=== PATIENT | male | born 1950 | race African-American/Black ===

== ENCOUNTER 2024-04-13 10:17 | Day surgery (SDC) | payer SELFPAY ==
[2024-04-13] MEDS ORDERED: diphenhydrAMINE 25 MG CAP PO SCH (11:15)
[2024-04-13] MEDS ORDERED: Acetaminophen 500 MG TAB ONE (12:21)
[2024-04-13] MEDS: Acetaminophen 500 MG TAB PO SCH (12:22)
[2024-04-13 16:55] VITALS: BP 129/75; TEMP 98
== END 2024-04-13 17:00 | disposition home or self-care (01) ==
LOC: ONC/OP 10:17
PROVIDERS: ATTEND Internal Medicine Hematology & Oncology
DX: D64.9 Anemia, unspecified (principal); D69.6 Thrombocytopenia, unspecified
CPT/HCPCS: 36430; 86850; 86870; 86900; 86901; 86905; 86922; P9016

== ENCOUNTER 2024-04-25 09:06 | Day surgery (SDC) | payer MEDICARE ==
[2024-04-25] MEDS ORDERED: diphenhydrAMINE 25 MG CAP ONE (09:40)
[2024-04-25] MEDS ORDERED: Acetaminophen 500 MG TAB ONE (09:40)
[2024-04-25] MEDS: Acetaminophen 500 MG TAB PO SCH (09:41)
[2024-04-25] MEDS: diphenhydrAMINE 25 MG CAP PO SCH (09:42)
[2024-04-25 13:20] VITALS: BP 111/69; TEMP 98
== END 2024-04-25 13:21 | disposition home or self-care (01) ==
LOC: ONC/OP 09:06
PROVIDERS: ATTEND Internal Medicine Hematology & Oncology
DX: D64.9 Anemia, unspecified (principal); D69.6 Thrombocytopenia, unspecified
CPT/HCPCS: 36430; 86850; 86870; 86900; 86901; 86902; 86920; 86922; P9016

== ENCOUNTER 2024-05-19 10:09 | Day surgery (SDC) | payer MEDICARE, SELFPAY ==
[2024-05-19] MEDS ORDERED: diphenhydrAMINE 25 MG CAP PO SCH (10:45)
[2024-05-19] MEDS ORDERED: Acetaminophen 500 MG TAB ONE (11:25)
[2024-05-19] MEDS: Acetaminophen 500 MG TAB PO SCH (11:26)
[2024-05-19 14:40] VITALS: BP 130/68; TEMP 98.2
== END 2024-05-19 14:43 | disposition home or self-care (01) ==
LOC: ONC/OP 10:09
PROVIDERS: ATTEND Internal Medicine Hematology & Oncology
DX: D64.9 Anemia, unspecified (principal); D69.6 Thrombocytopenia, unspecified
CPT/HCPCS: 36430; 86850; 86900; 86901; 86922; P9016

== ENCOUNTER 2024-05-26 11:58 | Day surgery (SDC) | payer MEDICARE, SELFPAY ==
[2024-05-26] MEDS ORDERED: Acetaminophen 500 MG TAB ONE (13:10)
[2024-05-26] MEDS: Acetaminophen 500 MG TAB PO SCH (13:11)
[2024-05-26] MEDS ORDERED: diphenhydrAMINE 25 MG CAP PO SCH (13:15)
[2024-05-26 14:35] VITALS: TEMP 97.8
[2024-05-26 17:03] VITALS: BP 98/63
== END 2024-05-26 17:04 | disposition home or self-care (01) ==
LOC: ONC/OP 11:58
PROVIDERS: ATTEND Internal Medicine Hematology & Oncology
DX: D64.9 Anemia, unspecified (principal); D69.6 Thrombocytopenia, unspecified
CPT/HCPCS: 36430; 86850; 86870; 86900; 86901; 86922; P9016

== ENCOUNTER 2024-08-17 11:45 | Day surgery (SDC) | payer MEDICARE, SELFPAY ==
[2024-08-17] MEDS ORDERED: diphenhydrAMINE 25 MG CAP PO SCH (12:00)
[2024-08-17] MEDS ORDERED: Acetaminophen 500 MG TAB ONE (12:43)
[2024-08-17] MEDS: Acetaminophen 500 MG TAB PO SCH (12:44)
[2024-08-17] MEDS ORDERED: FLU (Fluad Triv) TS24-25 (65UP)/MF59C/PF 45 MCG/0.5 ML Syringe IM ONE (15:00)
[2024-08-17 17:41] VITALS: BP 120/73; TEMP 98.4
== END 2024-08-17 17:48 | disposition home or self-care (01) ==
LOC: ONC/OP 11:45
PROVIDERS: ATTEND Internal Medicine Hematology & Oncology
DX: D64.9 Anemia, unspecified (principal); D69.6 Thrombocytopenia, unspecified
CPT/HCPCS: 36430; 86850; 86870; 86900; 86901; 86922; P9016

== ENCOUNTER 2024-08-28 12:28 | Inpatient (IN) | payer MEDICARE, SELFPAY ==
[~2024-08-28 12:28] MED LIST: Iopamidol-370 76% 500 ML MDV (1 ML CHARGE) ONE
[2024-08-28 13:10] LABS: Actual Bicarbonate (HCO3v) 18.4 mEq/L (22-28); Analyzer IN Cardio ER; Base Excess -7.6 mEq/L (-2.0 to +3.0); Calcium, Ionized (venous) 1.07 mmol/L (1.16-1.32); Chloride (VBG) 108 mmol/L (98-106); Hematocrit-VBG 9 % (42.0-52.0); Potassium (VBG) 3.52 mmol/L (3.70-5.30); Sodium 139 mmol/L (133-146); pH (venous) 7.271 (7.32-7.43)
[2024-08-28 13:18] LABS: Hematocrit 9.7 % (42.0-52.0); Hemoglobin 2.8 g/dL (14.0-18.0); Mean Corpuscular HGB CONC 28.9 g/dL (32.0-36.0); Mean Corpuscular Hemoglobin 31.5 pg (27.0-31.0); Platelet Count 12 10x3/uL (130-400); RBC Distribution Width 28.8 % (11.5-14.5); Red Blood Cell (RBC) Count 0.89 mill/uL (4.70-6.10)
[2024-08-28 13:21] LABS: INR-International Normal Ratio 1.5; PTT 29.3 sec (22.9-36.1); Prothrombin Time 18.2 sec (12.0-14.7)
[2024-08-28 13:24] LABS: Acetaminophen Less than 10 mcg/mL (Less than 10); Alcohol Less than 10.0 mg/dL (Less than 10); Magnesium 1.8 mg/dL (1.6-2.6); Salicylate Less than 8.0 mg/dL (Less than 8.0)
[2024-08-28 13:25] LABS: ALT (SGPT) 5 U/L (8-55); AST (SGOT) 19 U/L (5-34); Albumin 2.3 g/dL (3.4-4.8); Alkaline Phosphatase 43 U/L (40-110); Anion Gap 20 mmol/L (10-20); BUN (Urea Nitrogen) 27 mg/dL (8.4-25.7); Calc. Creatinine Clearance 0 mL/min (70-130); Calcium 7.5 mg/dL (7.8-10.44); Carbon Dioxide 16 mmol/L (23-31); Chloride 106 mmol/L (98-107); Estimated GFR 63; Glucose 255 mg/dL (83-110); Potassium 3.4 mmol/L (3.5-5.1); Protein, Total 4.3 g/dL (5.8-8.1); Sodium 139 mmol/L (136-145)
[2024-08-28 13:47] LABS: Troponin I 0.079 ng/mL (< 0.028)
[2024-08-28 13:53] LABS: Anisocytosis MODERATE=16-30 cells HPF (0-5); Band 4 % (5-11); Eosinophils 1 % (0-10); Hypochromia SLIGHT = 6-15 cells HPF (0-5); Large Platelets 1.1 % (0-5); Lymphocytes 52 % (21-51); Microcytosis MODERATE=15-30 cells HPF (0-5); Neutrophil 43 % (42-75); Nucleated RBC (Manual Ct) 64 % (0); Platelet Adequacy Comment Platelets Decreased; Polychromasia MODERATE = 3-4 cells HPF (0-2); Reflex for Review?? YES; Schistocytes MODERATE= 6-15 cells HPF (0-1); Smudge Cells 15.8 %
[2024-08-28] MEDS ORDERED: Cefepime 2 GM VIAL ONE (14:07)
[2024-08-28] MEDS ORDERED: Sodium Chloride 0.9% 100 ML ONE (14:07)
[2024-08-28 14:32] LABS: Bacteria/HPF 3+ HPF (None Seen); Bilirubin Negative (Negative); Blood, Urine 3+ (Negative); CAUTI Indications for Culture Alt mental st,lethar; Clarity Turbid (Clear); Glucose, Urine (Dipstick) Normal (Negative); Ketone, Urine Trace mg/dL (Negative); Leukocyte Negative Leu/uL (Negative); Nitrite Negative (Negative); Protein, Urine (Dipstick) 70 mg/dL (Neg-Trace); RBC/HPF Greater than 50 HPF (0-3); Specific Gravity, Urine 1.009 (1.002-1.036); Squamous Epithelial None Seen HPF (0-3); Urobilinogen Normal mg/dL (Less than 2); Yeast-Budding 1+ HPF (None Seen); pH, Urine 5.5 (5.0-9.0)
[2024-08-28 14:32] LABS: Amphetamine Not Detected (NotDetected); Barbiturates Screen Not Detected (NotDetected); Benzodiazepine Screen Not Detected (NotDetected); Cocaine Metabolite Screen Not Detected (NotDetected); Methadone Not Detected (NotDetected); Methamphetamine Not Detected (NotDetected); Opiate Screen Not Detected (NotDetected); Oxycodone Screen Not Detected (NotDetected); Phencyclidine (PCP) Not Detected (NotDetected); THC/Cannabinoid Screen Not Detected (NotDetected); Tricyclic Screen Not Detected (NotDetected)
[2024-08-28 14:42] LABS: Urine Culture Reflex Yes Yes
[2024-08-28] MEDS ORDERED: Ondansetron PF 4 MG/2 ML Vial IVP PRN (16:07)
[2024-08-28] MEDS ORDERED: Acetaminophen 325 MG TAB PO PRN (16:07)
[2024-08-28 16:40] LABS: Lactic Acid 6.63 mmol/L (0.5-2.2)
[2024-08-28] MEDS: Vancomycin (BATCH) 1.75 GM in Premix 1 BAG IVPB SCH (17:58)
[2024-08-28] MEDS: Lactated Ringer's 1,000 ML IV SCH (18:15)
[2024-08-28 18:23] VITALS: BMI 21.7
[2024-08-28] MEDS: Potassium Chloride 20 MEQ in Premix 1 BAG IVPB SCH (18:38)
[2024-08-28 19:11] LABS: Hemoglobin 4.7 g/dL (14.0-18.0)
[2024-08-28] MEDS: Pantoprazole 40 MG VIAL IVP SCH (21:01)
[2024-08-28] MEDS: Voriconazole 50 MG TAB PO SCH (21:54)
[2024-08-29 00:22] LABS: Hematocrit 19.9 % (42.0-52.0); Hemoglobin 6.4 g/dL (14.0-18.0)
[2024-08-29 04:13] LABS: Anion Gap 10 mmol/L (10-20); BUN (Urea Nitrogen) 27 mg/dL (8.4-25.7); Calc. Creatinine Clearance 66 mL/min (70-130); Calcium 7.5 mg/dL (7.8-10.44); Carbon Dioxide 22 mmol/L (23-31); Chloride 116 mmol/L (98-107); Estimated GFR 82; Glucose 141 mg/dL (83-110); Potassium 4.1 mmol/L (3.5-5.1); Sodium 144 mmol/L (136-145)
[2024-08-29 04:25] LABS: Hemoglobin 7.1 g/dL (14.0-18.0); Mean Corpuscular HGB CONC 32.3 g/dL (32.0-36.0); Mean Corpuscular Hemoglobin 27.8 pg (27.0-31.0); Mean Corpuscular Volume 86.3 fL (78.0-98.0); Platelet Count 10 10x3/uL (130-400); RBC Distribution Width 22.7 % (11.5-14.5); Red Blood Cell (RBC) Count 2.55 mill/uL (4.70-6.10)
[2024-08-29] MEDS: LevoFLOXacin 500 MG TAB PO SCH (05:08)
[2024-08-29 07:23] LABS: Band 1 % (5-11); Lymphocytes 36 % (21-51); Monocytes 1 % (0-10); Neutrophil 62 % (42-75); Nucleated RBC (Manual Ct) 18 % (0)
[2024-08-29] MEDS ORDERED: Decitabine/Cedazuridine [Inqovi 35 Mg-100 Mg Tablet] PO SCH (09:00)
[2024-08-29 09:53] LABS: Hemoglobin (Hb) 2.9 g/dL (12.6-17.4)
[2024-08-29 14:54] LABS: Hematocrit 20.3 % (42.0-52.0); Hemoglobin 6.7 g/dL (14.0-18.0); Mean Corpuscular Hemoglobin 28.2 pg (27.0-31.0); Mean Corpuscular Volume 85.3 fL (78.0-98.0); Platelet Count 6 10x3/uL (130-400); RBC Distribution Width 23.9 % (11.5-14.5); Red Blood Cell (RBC) Count 2.38 mill/uL (4.70-6.10)
[2024-08-29 15:14] LABS: Anisocytosis SLIGHT = 6-15 cells HPF (0-5); Band 3 % (5-11); Burr Cells SLIGHT = 2-5 cells HPF (0-1); Eosinophils 4 % (0-10); Lymphocytes 44 % (21-51); Macrocytosis SLIGHT = 6-15 cells HPF (0-5); Monocytes 2 % (0-10); Neutrophil 44 % (42-75); Nucleated RBC (Manual Ct) 105 % (0); Plasma Cells 3 % (0-0); Platelet Adequacy Comment Platelets Decreased; Polychromasia MODERATE = 3-4 cells HPF (0-2); Schistocytes SLIGHT = 2-5 cells HPF (0-1); Smudge Cells 28.6 %; Target Cells SLIGHT = 2-5 cells HPF (0-1); Tear Drops SLIGHT = 2-5 cells HPF (0-1)
[2024-08-29 21:50] LABS: Hemoglobin 6.7 g/dL (14.0-18.0)
[2024-08-29 23:57] LABS: Hematocrit 20.8 % (42.0-52.0); Hemoglobin 6.7 g/dL (14.0-18.0)
[2024-08-30 05:30] LABS: Hematocrit 23.2 % (42.0-52.0); Hemoglobin 7.7 g/dL (14.0-18.0)
[2024-08-30 05:48] LABS: Hematocrit 22.9 % (42.0-52.0); Hemoglobin 7.6 g/dL (14.0-18.0); Mean Corpuscular HGB CONC 33.2 g/dL (32.0-36.0); Mean Corpuscular Hemoglobin 27.9 pg (27.0-31.0); Mean Corpuscular Volume 84.2 fL (78.0-98.0); Platelet Count 13 10x3/uL (130-400); RBC Distribution Width 20.5 % (11.5-14.5); Red Blood Cell (RBC) Count 2.72 mill/uL (4.70-6.10)
[2024-08-30 06:19] LABS: Anion Gap 10 mmol/L (10-20); BUN (Urea Nitrogen) 25 mg/dL (8.4-25.7); Calc. Creatinine Clearance 80 mL/min (70-130); Calcium 7.7 mg/dL (7.8-10.44); Carbon Dioxide 24 mmol/L (23-31); Chloride 112 mmol/L (98-107); Estimated GFR 92; Glucose 113 mg/dL (83-110); Potassium 3.5 mmol/L (3.5-5.1); Sodium 142 mmol/L (136-145)
[2024-08-30 06:21] LABS: Anisocytosis SLIGHT = 6-15 cells HPF (0-5); Band 3 % (5-11); Hypochromia SLIGHT = 6-15 cells HPF (0-5); Lymphocytes 70 % (21-51); Microcytosis SLIGHT = 6-15 cells HPF (0-5); Monocytes 1 % (0-10); Neutrophil 26 % (42-75); Nucleated RBC (Manual Ct) 42 % (0); Platelet Adequacy Comment Significant Decrease; Polychromasia MODERATE = 3-4 cells HPF (0-2); Smudge Cells 5.9 %
[2024-08-30] MEDS: valACYclovir 500 MG TAB PO SCH (08:29)
[2024-08-30] MEDS: Polyethylene Glycol 3350 17 GM Packet PO SCH (09:36)
[2024-08-30] MEDS: Pantoprazole DR 40 MG TAB PO SCH (20:09)
[2024-08-30] MEDS: Senokot S 8.6-50 MG TAB PO SCH (20:09)
[2024-08-31 05:52] LABS: Hematocrit 22.8 % (42.0-52.0); Hemoglobin 7.6 g/dL (14.0-18.0); Mean Corpuscular HGB CONC 33.3 g/dL (32.0-36.0); Mean Corpuscular Hemoglobin 28.5 pg (27.0-31.0); Mean Corpuscular Volume 85.4 fL (78.0-98.0); Platelet Count 6 10x3/uL (130-400); RBC Distribution Width 21.5 % (11.5-14.5); Red Blood Cell (RBC) Count 2.67 mill/uL (4.70-6.10)
[2024-08-31 07:03] LABS: Anisocytosis SLIGHT = 6-15 cells HPF (0-5); Eosinophils 6 % (0-10); Lymphocytes 65 % (21-51); Macrocytosis SLIGHT = 6-15 cells HPF (0-5); Monocytes 6 % (0-10); Neutrophil 24 % (42-75); Nucleated RBC (Manual Ct) 12 % (0); Platelet Adequacy Comment Significant Decrease; Polychromasia SLIGHT = 2-3 cells HPF (0-2); Smudge Cells 23.5 %
[2024-08-31] MEDS: Polyethylene Glycol 3350 17 GM Packet PO SCH (09:27)
[2024-08-31 12:46] LABS: Hematocrit 22.5 % (42.0-52.0); Hemoglobin 7.5 g/dL (14.0-18.0); Mean Corpuscular HGB CONC 33.3 g/dL (32.0-36.0); Mean Corpuscular Hemoglobin 28.2 pg (27.0-31.0); Mean Corpuscular Volume 84.6 fL (78.0-98.0); Mean Platelet Volume 9.7 fL (7.4-10.4); Platelet Count 20 10x3/uL (130-400); RBC Distribution Width 21.1 % (11.5-14.5); Red Blood Cell (RBC) Count 2.66 mill/uL (4.70-6.10)
[2024-08-31 16:02] VITALS: BP 126/55; TEMP 98.3
[2024-08-31 16:47] LABS: Anisocytosis MODERATE=16-30 cells HPF (0-5); Band 1 % (5-11); Burr Cells SLIGHT = 2-5 cells HPF (0-1); Hypochromia SLIGHT = 6-15 cells HPF (0-5); Large Platelets 1.3 % (0-5); Lymphocytes 65 % (21-51); Macrocytosis SLIGHT = 6-15 cells HPF (0-5); Monocytes 3 % (0-10); Neutrophil 30 % (42-75); Nucleated RBC (Manual Ct) 30 % (0); Other Cell Types 1.3; Platelet Adequacy Comment Significant Decrease; Polychromasia SLIGHT = 2-3 cells HPF (0-2); Schistocytes SLIGHT = 2-5 cells HPF (0-1); Target Cells SLIGHT = 2-5 cells HPF (0-1)
== END 2024-08-31 16:03 | disposition home or self-care (01) | DRG 808 ==
LOC: ERS 12:28 → IMCU/EMU 16:05 → MSONC 08-29 13:25
PROVIDERS: ADMIT Internal Medicine; ATTEND Internal Medicine
PROC: 4A10X4Z Monitoring of Central Nervous Electrical Activity, External Approach (ICD-10-PCS; principal; 2024-08-28)
PROC: 30233N1 Transfusion of Nonautologous Red Blood Cells into Peripheral Vein, Percutaneous Approach (ICD-10-PCS; 2024-08-28)
PROC: 30233R1 Transfusion of Nonautologous Platelets into Peripheral Vein, Percutaneous Approach (ICD-10-PCS; 2024-08-29)
DX: D61.818 Other pancytopenia (principal); I21.A1 Myocardial infarction type 2; E87.20 Acidosis, unspecified; D46.Z Other myelodysplastic syndromes; D46.9 Myelodysplastic syndrome, unspecified; C61 Malignant neoplasm of prostate; R77.8 Other specified abnormalities of plasma proteins; E87.6 Hypokalemia; Z66 Do not resuscitate; Z98.890 Other specified postprocedural states
CPT/HCPCS: 36415; 36416; 36430; 70450; 71045; 71275; 74177; 80048; 80053; 80306; 80307; 81001; 82607; 82805; 83605; 83735; 83880; 84484; 85025; 85060; 85610; 85730; 86850; 86900; 86901; 86922; 87040; 87086; 88184; 93005; 94760; 96361; 96365; J0692; J2470; J3370; J3480; J7120; P9016; P9035; Q9967

== ENCOUNTER 2024-09-01 12:00 | Day surgery (SDC) | payer MEDICARE ==
[2024-09-01] MEDS ORDERED: diphenhydrAMINE 25 MG CAP PO SCH (12:30)
[2024-09-01] MEDS ORDERED: Acetaminophen 500 MG TAB ONE (13:19)
[2024-09-01] MEDS: Acetaminophen 500 MG TAB PO SCH (13:21)
[2024-09-01 15:15] VITALS: BP 108/61; TEMP 98.5
[2024-09-01] MEDS ORDERED: FLU (Fluad Triv) TS24-25 (65UP)/MF59C/PF 45 MCG/0.5 ML Syringe IM ONE (15:30)
== END 2024-09-01 15:00 | disposition home or self-care (01) ==
LOC: ONC/OP 12:00
PROVIDERS: ATTEND Nurse Practitioner Family
DX: D64.9 Anemia, unspecified (principal); D69.6 Thrombocytopenia, unspecified; Z23 Encounter for immunization
CPT/HCPCS: 36430; 86850; 86900; 86901; 90653; G0008; P9035; 90471

== ENCOUNTER 2024-09-08 22:47 | Emergency (ER) | payer SELFPAY | END 2024-09-08 23:32 | LOC: ERS 22:47 | DX: I10 Essential (primary) hypertension (principal); E11.9 Type 2 diabetes mellitus without complications | CPT/HCPCS: 99283 ==

== ENCOUNTER 2024-11-03 12:33 | Inpatient (IN) | payer MEDICARE ==
[2024-11-03 13:40] LABS: Hematocrit 15.7 % (42.0-52.0); Hemoglobin 4.8 g/dL (14.0-18.0); Mean Corpuscular HGB CONC 30.6 g/dL (32.0-36.0); Mean Corpuscular Hemoglobin 32.9 pg (27.0-31.0); Mean Corpuscular Volume 107.5 fL (78.0-98.0); Platelet Count 25 10x3/uL (130-400); RBC Distribution Width 25.1 % (11.5-14.5); Red Blood Cell (RBC) Count 1.46 mill/uL (4.70-6.10)
[2024-11-03 13:45] LABS: ALT (SGPT) 5 U/L (8-55); AST (SGOT) 24 U/L (5-34); Albumin 3.2 g/dL (3.4-4.8); Alkaline Phosphatase 62 U/L (40-110); Anion Gap 11 mmol/L (10-20); BUN (Urea Nitrogen) 17 mg/dL (8.4-25.7); Bilirubin, Total 1.9 mg/dL (0.2-1.2); Calc. Creatinine Clearance 0 mL/min (70-130); Calcium 8.8 mg/dL (7.8-10.44); Carbon Dioxide 25 mmol/L (23-31); Chloride 105 mmol/L (98-107); Estimated GFR 79; Globulin 3.2 g/dL (2.4-3.5); Glucose 143 mg/dL (83-110); Lipase 22 U/L (8-78); Potassium 3.8 mmol/L (3.5-5.1); Protein, Total 6.4 g/dL (5.8-8.1); Sodium 137 mmol/L (136-145)
[2024-11-03 13:49] LABS: INR-International Normal Ratio 1.2; Prothrombin Time 14.7 sec (12.0-14.7)
[2024-11-03 13:50] LABS: PTT 30.9 sec (22.9-36.1)
[2024-11-03 13:51] LABS: Troponin I 0.019 ng/mL (< 0.028)
[2024-11-03 14:02] LABS: Anisocytosis MARKED = >30 cells HPF (0-5); Band 12 % (5-11); Hypochromia SLIGHT = 6-15 cells HPF (0-5); Large Platelets 9.9 % (0-5); Lymphocytes 36 % (21-51); Macrocytosis MODERATE=16-30 cells HPF (0-5); Microcytosis SLIGHT = 6-15 cells HPF (0-5); Monocytes 1 % (0-10); Neutrophil 43 % (42-75); Nucleated RBC (Manual Ct) 48 % (0); Platelet Adequacy Comment Platelets Decreased; Polychromasia MARKED = >4 cells HPF (0-2); Reactive Lymphocytes 3 % (0-10); Schistocytes SLIGHT = 2-5 cells HPF (0-1); Smudge Cells 13.9 %; Tear Drops SLIGHT = 2-5 cells HPF (0-1)
[2024-11-03] MEDS ORDERED: Pantoprazole 40 MG VIAL ONE (14:17)
[2024-11-03] MEDS ORDERED: Pantoprazole 80 MG, Admixture Fee 1 EACH in Sodium Chloride 0.9% 100 ML IVPB SCH (14:45)
[2024-11-03] MEDS ORDERED: Ondansetron ODT 4 MG TAB SL PRN (21:00)
[2024-11-03] MEDS ORDERED: Ondansetron PF 4 MG/2 ML Vial IVP PRN (21:00)
[2024-11-03 21:11] VITALS: BMI 22.0
[2024-11-04] MEDS ORDERED: Bisacodyl 5 MG TAB PO PRN (02:29)
[2024-11-04] MEDS ORDERED: Acetaminophen 325 MG TAB PO PRN (02:29)
[2024-11-04] MEDS ORDERED: Ondansetron PF 4 MG/2 ML Vial IVP PRN (02:29)
[2024-11-04 08:14] LABS: Anion Gap 11 mmol/L (10-20); BUN (Urea Nitrogen) 13 mg/dL (8.4-25.7); Calc. Creatinine Clearance 81 mL/min (70-130); Calcium 8.3 mg/dL (7.8-10.44); Carbon Dioxide 25 mmol/L (23-31); Chloride 108 mmol/L (98-107); Estimated GFR 92; Glucose 113 mg/dL (83-110); Potassium 3.5 mmol/L (3.5-5.1); Sodium 140 mmol/L (136-145)
[2024-11-04 08:30] LABS: Hematocrit 22.9 % (42.0-52.0); Hemoglobin 7.6 g/dL (14.0-18.0); Mean Corpuscular HGB CONC 33.2 g/dL (32.0-36.0); Mean Corpuscular Hemoglobin 31.9 pg (27.0-31.0); Mean Corpuscular Volume 96.2 fL (78.0-98.0); Platelet Count 30 10x3/uL (130-400); Red Blood Cell (RBC) Count 2.38 mill/uL (4.70-6.10)
[2024-11-04] MEDS ORDERED: [UNRECOGNIZED DRUG - OTHER] PO SCH (09:00)
[2024-11-04] MEDS ORDERED: DECITABINE PO SCH (09:00)
[2024-11-04] MEDS ORDERED: Decitabine/Cedazuridine [Inqovi 35 Mg-100 Mg Tablet] PO SCH (09:00)
[2024-11-04] MEDS ORDERED: CEDAZURIDINE PO SCH (09:00)
[2024-11-04] MEDS ORDERED: Non-Formulary Item 1 EACH (Voriconazole [Voriconazole] 200 MG Tablet) PO SCH (09:00)
[2024-11-04 09:15] LABS: Band 4 % (5-11); Dohle Bodies SLIGHT; Giant Platelets 2.2 % (0-5); Large Platelets 2.2 % (0-5); Lymphocytes 57 % (21-51); Neutrophil 30 % (42-75); Nucleated RBC (Manual Ct) 44 % (0); Platelet Adequacy Comment Platelets Decreased; Polychromasia MARKED = >4 cells HPF (0-2); Reactive Lymphocytes 2 % (0-10)
[2024-11-04] MEDS: valACYclovir 500 MG TAB PO SCH (09:23)
[2024-11-04] MEDS: Voriconazole 50 MG TAB PO SCH (09:23)
[2024-11-04] MEDS: Pantoprazole 40 MG VIAL IVP SCH (09:23)
[2024-11-04] MEDS: Benzonatate 100 MG CAP PO PRN (17:54)
[2024-11-05] MEDS: LevoFLOXacin 500 MG TAB PO SCH (06:02)
[2024-11-05 08:06] LABS: Anion Gap 11 mmol/L (10-20); BUN (Urea Nitrogen) 14 mg/dL (8.4-25.7); Calc. Creatinine Clearance 81 mL/min (70-130); Calcium 8.3 mg/dL (7.8-10.44); Carbon Dioxide 23 mmol/L (23-31); Chloride 108 mmol/L (98-107); Estimated GFR 92; Glucose 184 mg/dL (83-110); Potassium 3.8 mmol/L (3.5-5.1); Sodium 138 mmol/L (136-145)
[2024-11-05 08:16] LABS: Hematocrit 23.1 % (42.0-52.0); Hemoglobin 7.5 g/dL (14.0-18.0); Mean Corpuscular HGB CONC 32.5 g/dL (32.0-36.0); Mean Corpuscular Hemoglobin 31.8 pg (27.0-31.0); Mean Corpuscular Volume 97.9 fL (78.0-98.0); Platelet Count 21 10x3/uL (130-400); RBC Distribution Width 23.3 % (11.5-14.5); Red Blood Cell (RBC) Count 2.36 mill/uL (4.70-6.10)
[2024-11-05 09:13] VITALS: BP 129/80; TEMP 98.4
[2024-11-05 09:26] LABS: Plasma Cells 0 % (0-0); Platelet Adequacy Comment Appears Decreased; Polychromasia SLIGHT = 2-3 cells (100X) (0-2/hpf)
== END 2024-11-05 11:15 | disposition home or self-care (01) | DRG 809 ==
LOC: ERS 12:33 → ERHOLD 16:37 → PCU 20:50 → MSONC 11-04 19:32 → OBSVTOIN 11-05 09:51
PROVIDERS: ADMIT Internal Medicine; ATTEND Family Medicine
PROC: 6A550Z2 Pheresis of Platelets, Single (ICD-10-PCS; principal; 2024-11-03)
PROC: 30233N1 Transfusion of Nonautologous Red Blood Cells into Peripheral Vein, Percutaneous Approach (ICD-10-PCS; 2024-11-03)
DX: D61.818 Other pancytopenia (principal); K92.1 Melena; D46.9 Myelodysplastic syndrome, unspecified; Z85.46 Personal history of malignant neoplasm of prostate; Z98.890 Other specified postprocedural states; Z79.899 Other long term (current) drug therapy; E11.9 Type 2 diabetes mellitus without complications; I10 Essential (primary) hypertension
CPT/HCPCS: 36415; 36416; 36430; 71045; 74177; 80048; 83690; 83880; 84484; 85025; 85610; 85730; 86850; 86870; 86900; 86901; 86905; 86922; 93005; J2470; P9016; P9035

== ENCOUNTER 2024-11-07 09:28 | Day surgery (SDC) | payer MEDICARE ==
[2024-11-07] MEDS ORDERED: diphenhydrAMINE 25 MG CAP PO SCH (09:30)
[2024-11-07] MEDS ORDERED: Acetaminophen 500 MG TAB ONE (09:51)
[2024-11-07] MEDS: Acetaminophen 500 MG TAB PO SCH (09:54)
[2024-11-07 13:04] VITALS: BP 109/58; TEMP 98
== END 2024-11-07 13:00 | disposition home or self-care (01) ==
LOC: ONC/OP 09:28
PROVIDERS: ATTEND Internal Medicine Hematology & Oncology
DX: D64.9 Anemia, unspecified (principal); D69.6 Thrombocytopenia, unspecified
CPT/HCPCS: 36430; 86850; 86870; 86900; 86901; 86902; 86920; 86922; P9016

== ENCOUNTER 2025-06-18 09:56 | Emergency (ER) | payer OTHER, SELFPAY ==
[2025-06-18 14:41] LABS: ALT (SGPT) Less than 7 U/L (Less than 45); AST (SGOT) 31 U/L (11-34); Albumin 3.3 g/dL (3.1-4.5); Alkaline Phosphatase 71 U/L (40-110); Anion Gap 13 mmol/L (10-20); BUN (Urea Nitrogen) 18 mg/dL (8.4-25.7); Bilirubin, Total 1.1 mg/dL (0.3-1.2); Calc. Creatinine Clearance 0 mL/min (70-130); Calcium 9.3 mg/dL (7.8-10.44); Carbon Dioxide 28 mmol/L (23-31); Chloride 101 mmol/L (98-107); Globulin 4.1 g/dL (2.4-3.5); Glucose 99 mg/dL (83-110); Hematocrit 21.8 % (42.0-52.0); Hemoglobin 6.5 g/dL (14.0-18.0); Mean Corpuscular Hemoglobin 27.4 pg (27.0-31.0); Mean Corpuscular Volume 92.0 fL (78.0-98.0); Platelet Count 63 10x3/uL (130-400); Potassium 4.7 mmol/L (3.5-5.1); Red Blood Cell (RBC) Count 2.37 mill/uL (4.70-6.10); Sodium 137 mmol/L (136-145); White Blood Cell (WBC) Count 1.34 10x3/uL (4.8-10.8)
[2025-06-18 15:05] LABS: Anisocytosis MODERATE=16-30 cells HPF (0-5); Dohle Bodies SLIGHT; Giant Platelets 1.0 % (0-5); Nucleated RBC (Manual Ct) 7 % (0); Ovalocytes SLIGHT = 2-5 cells HPF (0-1); Platelet Adequacy Comment Platelets Decreased; Polychromasia SLIGHT = 2-3 cells HPF (0-2); Schistocytes SLIGHT = 2-5 cells HPF (0-1); Smudge Cells 13.9 %; Target Cells SLIGHT = 2-5 cells HPF (0-1)
[2025-06-18 15:48] LABS: Actual Bicarbonate (HCO3v) 29.1 mEq/L (22-28); Analyzer IN Cardio ER; Base Excess 3.0 mEq/L (-2.0 to +3.0); Calcium, Ionized (venous) 1.22 mmol/L (1.16-1.32); Chloride (VBG) 101 mmol/L (98-106); Hematocrit-VBG 23 % (42.0-52.0); Hemoglobin (Hb) 7.7 g/dL (12.6-17.4); Potassium (VBG) 4.72 mmol/L (3.70-5.30); Sodium 136 mmol/L (133-146)
[2025-06-18 16:43] LABS: Bacteria/HPF 1+ HPF (None Seen); CAUTI Indications for Culture Alt mental st,lethar; Glucose, Urine (Dipstick) Normal (Negative); Leukocyte Negative Leu/uL (Negative); Protein, Urine (Dipstick) Negative (Neg-Trace); RBC/HPF 0-3 HPF (0-3); Specific Gravity, Urine 1.018 (1.002-1.036); WBC/HPF 0-3 HPF (0-3)
[2025-06-18 16:44] LABS: Urine Culture Reflex No No
== END 2025-06-18 21:23 ==
LOC: EEVIPCON 09:56 → ERS 09:56
DX: D61.810 Antineoplastic chemotherapy induced pancytopenia (principal); D64.9 Anemia, unspecified; E11.9 Type 2 diabetes mellitus without complications; I10 Essential (primary) hypertension; Z79.899 Other long term (current) drug therapy
CPT/HCPCS: 36416; 36430; 71045; 80053; 81001; 82805; 83605; 85025; 86850; 86870; 86880; 86900; 86901; 86922; 87040; 87086; 87426; 94760; P9016

== ENCOUNTER 2025-07-11 01:06 | Emergency (ER) | payer OTHER ==
[2025-07-11] MEDS ORDERED: Acetaminophen 500 MG TAB ONE (02:13)
[2025-07-11 02:14] LABS: #Basophils Less than 0.03 10x3/uL (0.0-0.2); #Eosinophils Less than 0.03 10x3/uL (0.0-0.7); #Monocytes 0.05 10x3/uL (0.11-0.59); #Neutrophils 0.23 10x3/uL (1.40-6.50); %Basophils 0.0 % (0.0-1.0); %Eosinophils 0.0 % (0.0-10.0); %Lymphocytes 56.1 % (21.0-51.0); %Monocytes 7.6 % (0.0-10.0); %Neutrophils 34.8 % (42.0-75.0); Hematocrit 21.3 % (42.0-52.0); Hemoglobin 6.6 g/dL (14.0-18.0); Mean Corpuscular Hemoglobin 29.2 pg (27.0-31.0); Mean Corpuscular Volume 94.2 fL (78.0-98.0); Platelet Count 20 10x3/uL (130-400); Red Blood Cell (RBC) Count 2.26 mill/uL (4.70-6.10); White Blood Cell (WBC) Count 0.66 10x3/uL (4.8-10.8)
[2025-07-11 02:21] LABS: ALT (SGPT) Less than 7 U/L (Less than 45); AST (SGOT) 30 U/L (11-34); Albumin 3.3 g/dL (3.1-4.5); Alkaline Phosphatase 77 U/L (40-110); Anion Gap 10 mmol/L (10-20); BUN (Urea Nitrogen) 24 mg/dL (8.4-25.7); Bilirubin, Total 1.2 mg/dL (0.3-1.2); Calc. Creatinine Clearance 0 mL/min (70-130); Calcium 9.2 mg/dL (7.8-10.44); Carbon Dioxide 28 mmol/L (23-31); Chloride 102 mmol/L (98-107); Globulin 3.8 g/dL (2.4-3.5); Glucose 121 mg/dL (83-110); Potassium 4.4 mmol/L (3.5-5.1); Sodium 136 mmol/L (136-145)
== END 2025-07-11 07:54 ==
LOC: ERS 01:06
DX: D64.9 Anemia, unspecified (principal); I10 Essential (primary) hypertension; E11.9 Type 2 diabetes mellitus without complications; Z79.899 Other long term (current) drug therapy
CPT/HCPCS: 36430; 80053; 85025; 86850; 86870; 86880; 86900; 86901; 86922; 99284; P9016

== ENCOUNTER 2025-08-28 01:30 | Emergency (ER) | payer OTHER ==
[2025-08-28 02:04] LABS: Hematocrit 20.2 % (42.0-52.0); Hemoglobin 6.0 g/dL (14.0-18.0); Mean Corpuscular Hemoglobin 27.8 pg (27.0-31.0); Mean Corpuscular Volume 93.5 fL (78.0-98.0); Platelet Count 41 10x3/uL (130-400); Red Blood Cell (RBC) Count 2.16 mill/uL (4.70-6.10); White Blood Cell (WBC) Count 0.86 10x3/uL (4.8-10.8)
[2025-08-28 02:17] LABS: Anion Gap 13 mmol/L (10-20); BUN (Urea Nitrogen) 23 mg/dL (8.4-25.7); Calc. Creatinine Clearance 0 mL/min (70-130); Calcium 9.4 mg/dL (7.8-10.44); Carbon Dioxide 27 mmol/L (23-31); Chloride 104 mmol/L (98-107); Glucose 103 mg/dL (83-110); Potassium 4.7 mmol/L (3.5-5.1); Sodium 139 mmol/L (136-145)
[2025-08-28 04:32] LABS: Anisocytosis SLIGHT = 6-15 cells HPF (0-5); Nucleated RBC (Manual Ct) 4 % (0); Platelet Adequacy Comment Platelets Decreased; Polychromasia SLIGHT = 2-3 cells HPF (0-2); Schistocytes SLIGHT = 2-5 cells HPF (0-1); Smudge Cells 5.0 %; Target Cells SLIGHT = 2-5 cells HPF (0-1)
[2025-08-28 12:42] LABS: Hematocrit 22.9 % (42.0-52.0); Hemoglobin 7.2 g/dL (14.0-18.0)
== END 2025-08-28 13:11 | disposition home or self-care (01) ==
LOC: EEVIPCON 01:30 → ERS 01:30
DX: D64.9 Anemia, unspecified (principal); E11.9 Type 2 diabetes mellitus without complications; I10 Essential (primary) hypertension
CPT/HCPCS: 36430; 80048; 85025; 86850; 86870; 86880; 86900; 86901; 86922; 99284; P9016

== ENCOUNTER 2025-09-14 03:51 | Emergency (ER) | payer OTHER ==
[2025-09-14 04:27] LABS: #Basophils Less than 0.03 10x3/uL (0.0-0.2); #Eosinophils Less than 0.03 10x3/uL (0.0-0.7); #Monocytes 0.06 10x3/uL (0.11-0.59); #Neutrophils 0.22 10x3/uL (1.40-6.50); %Basophils 0.0 % (0.0-1.0); %Eosinophils 0.0 % (0.0-10.0); %Lymphocytes 54.1 % (21.0-51.0); %Monocytes 9.8 % (0.0-10.0); %Neutrophils 36.1 % (42.0-75.0); Hematocrit 21.7 % (42.0-52.0); Hemoglobin 6.6 g/dL (14.0-18.0); Mean Corpuscular Hemoglobin 27.8 pg (27.0-31.0); Mean Corpuscular Volume 91.6 fL (78.0-98.0); Platelet Count 23 10x3/uL (130-400); Red Blood Cell (RBC) Count 2.37 mill/uL (4.70-6.10); White Blood Cell (WBC) Count 0.61 10x3/uL (4.8-10.8)
[2025-09-14 04:40] LABS: ALT (SGPT) Less than 7 U/L (Less than 45); AST (SGOT) 34 U/L (11-34); Albumin 3.3 g/dL (3.1-4.5); Alkaline Phosphatase 65 U/L (40-110); Anion Gap 12 mmol/L (10-20); BUN (Urea Nitrogen) 20 mg/dL (8.4-25.7); Bilirubin, Total 1.5 mg/dL (0.3-1.2); Calc. Creatinine Clearance 0 mL/min (70-130); Calcium 9.5 mg/dL (7.8-10.44); Carbon Dioxide 26 mmol/L (23-31); Chloride 104 mmol/L (98-107); Globulin 4.1 g/dL (2.4-3.5); Glucose 100 mg/dL (83-110); INR-International Normal Ratio 1.2; Potassium 4.2 mmol/L (3.5-5.1); Prothrombin Time 15.4 sec (12.0-14.7); Sodium 138 mmol/L (136-145)
[2025-09-14 04:41] LABS: PTT 44.3 sec (22.9-36.1)
== END 2025-09-14 09:18 ==
LOC: EEVIPCON 03:51 → ERS 03:51
DX: D64.9 Anemia, unspecified (principal); E11.9 Type 2 diabetes mellitus without complications; I10 Essential (primary) hypertension; Z79.899 Other long term (current) drug therapy
CPT/HCPCS: 36430; 80053; 85025; 85610; 85730; 86850; 86870; 86900; 86901; 86922; 99284; P9016

== ENCOUNTER 2025-10-01 14:58 | Emergency (ER) | payer OTHER ==
[2025-10-01] MEDS ORDERED: Oxymetazoline HCl 0.05% (30 ML BOT) ONE (15:45)
== END 2025-10-01 17:14 ==
LOC: EEVIPCON 14:58 → ERS 14:58
DX: R04.0 Epistaxis (principal); E11.9 Type 2 diabetes mellitus without complications; I10 Essential (primary) hypertension; Z79.84 Long term (current) use of oral hypoglycemic drugs
CPT/HCPCS: 99283

== ENCOUNTER 2025-10-03 13:25 | Emergency (ER) | payer OTHER ==
[2025-10-03 14:07] LABS: #Basophils Less than 0.03 10x3/uL (0.0-0.2); #Eosinophils Less than 0.03 10x3/uL (0.0-0.7); #Monocytes 0.03 10x3/uL (0.11-0.59); #Neutrophils 0.21 10x3/uL (1.40-6.50); %Basophils 0.0 % (0.0-1.0); %Eosinophils 0.0 % (0.0-10.0); %Lymphocytes 47.8 % (21.0-51.0); %Monocytes 6.5 % (0.0-10.0); %Neutrophils 45.7 % (42.0-75.0); Hematocrit 19.1 % (42.0-52.0); Hemoglobin 5.9 g/dL (14.0-18.0); Mean Corpuscular Hemoglobin 28.0 pg (27.0-31.0); Mean Corpuscular Volume 90.5 fL (78.0-98.0); Platelet Count 35 10x3/uL (130-400); Red Blood Cell (RBC) Count 2.11 mill/uL (4.70-6.10); White Blood Cell (WBC) Count 0.46 10x3/uL (4.8-10.8)
[2025-10-03 14:12] LABS: ALT (SGPT) Less than 7 U/L (Less than 45); AST (SGOT) 25 U/L (11-34); Albumin 3.3 g/dL (3.1-4.5); Alkaline Phosphatase 77 U/L (40-110); Anion Gap 12 mmol/L (10-20); BUN (Urea Nitrogen) 27 mg/dL (8.4-25.7); Bilirubin, Total 0.7 mg/dL (0.3-1.2); Calc. Creatinine Clearance 0 mL/min (70-130); Calcium 9.2 mg/dL (7.8-10.44); Carbon Dioxide 28 mmol/L (23-31); Chloride 103 mmol/L (98-107); Globulin 3.8 g/dL (2.4-3.5); Glucose 157 mg/dL (83-110); Potassium 4.7 mmol/L (3.5-5.1); Sodium 138 mmol/L (136-145)
[2025-10-03 14:14] LABS: INR-International Normal Ratio 1.2; Prothrombin Time 15.1 sec (12.0-14.7)
== END 2025-10-03 22:00 | disposition home or self-care (01) ==
LOC: EEVIPCON 13:25 → ERS 13:25
DX: D46.9 Myelodysplastic syndrome, unspecified (principal); D61.1 Drug-induced aplastic anemia; T45.1X5A Adverse effect of antineoplastic and immunosuppressive drugs, initial encounter; I10 Essential (primary) hypertension; E11.9 Type 2 diabetes mellitus without complications; Z87.891 Personal history of nicotine dependence; Z55.6 Problems related to health literacy; Z79.899 Other long term (current) drug therapy
CPT/HCPCS: 36430; 80053; 85025; 85610; 86850; 86870; 86880; 86900; 86901; 86922; 94760; 99284; P9016

== ENCOUNTER 2025-10-10 22:56 | Inpatient (IN) | payer OTHER ==
[2025-10-10 23:52] LABS: Hematocrit 21.3 % (42.0-52.0); Hemoglobin 6.7 g/dL (14.0-18.0); Mean Corpuscular Hemoglobin 27.9 pg (27.0-31.0); Mean Corpuscular Volume 88.8 fL (78.0-98.0); Red Blood Cell (RBC) Count 2.40 mill/uL (4.70-6.10); White Blood Cell (WBC) Count 0.73 10x3/uL (4.8-10.8)
[2025-10-10 23:59] LABS: INR-International Normal Ratio 1.2; Prothrombin Time 15.4 sec (12.0-14.7)
[2025-10-11] LABS: PTT 39.1 sec (22.9-36.1)
[2025-10-11 00:25] LABS: ALT (SGPT) Less than 7 U/L (Less than 45); AST (SGOT) 30 U/L (11-34); Albumin 3.6 g/dL (3.1-4.5); Alkaline Phosphatase 76 U/L (40-110); Anion Gap 15 mmol/L (10-20); BUN (Urea Nitrogen) 23 mg/dL (8.4-25.7); Bilirubin, Total 1.1 mg/dL (0.3-1.2); Calc. Creatinine Clearance 0 mL/min (70-130); Calcium 9.3 mg/dL (7.8-10.44); Carbon Dioxide 25 mmol/L (23-31); Chloride 103 mmol/L (98-107); Globulin 4.1 g/dL (2.4-3.5); Glucose 176 mg/dL (83-110); Potassium 4.3 mmol/L (3.5-5.1); Sodium 139 mmol/L (136-145)
[2025-10-11 00:35] LABS: Macrocytosis SLIGHT = 6-15 cells (100X) (0-5/hpf); Nucleated RBC (Manual Ct) 7 % (0); Plasma Cells 0 % (0-0); Platelet Adequacy Comment Appears Decreased; Platelet Count 10 10x3/uL (130-400); Polychromasia SLIGHT = 2-3 cells (100X) (0-2/hpf); Schistocytes SLIGHT = 2-5 cells (100X) (0-1/hpf)
[2025-10-11] MEDS ORDERED: Cefepime 2 GM VIAL ONE (00:48)
[2025-10-11 01:36] LABS: Bacteria/HPF None Seen HPF (None Seen); CAUTI Indications for Culture Alt mental st,lethar; Glucose, Urine (Dipstick) Normal (Negative); Leukocyte Negative Leu/uL (Negative); Protein, Urine (Dipstick) Negative (Neg-Trace); RBC/HPF 0-3 HPF (0-3); Specific Gravity, Urine 1.020 (1.002-1.036); WBC/HPF 0-3 HPF (0-3)
[2025-10-11 01:41] LABS: Urine Culture Reflex No No
[2025-10-11] MEDS ORDERED: Calcium Carbonate 500 MG ChewTAB PO PRN (02:03)
[2025-10-11] MEDS ORDERED: Ondansetron PF 4 MG/2 ML Vial IVP PRN (02:03)
[2025-10-11] MEDS ORDERED: Dextrose 50% Abboject 50 ML SYRINGE SLOW IVP PRN (02:04)
[2025-10-11] MEDS ORDERED: Glucagon 1 MG/ML KIT IM PRN (02:04)
[2025-10-11] MEDS ORDERED: Electrolyte Replacement Protocol 1 EACH FS SCH (02:15)
[2025-10-11] MEDS ORDERED: Potassium Chloride 20 MEQ in Premix 1 BAG IVPB PRN (02:45)
[2025-10-11] MEDS ORDERED: Magnesium 2 GM/50 ML(in water) 2 GM in Premix 1 BAG IVPB PRN (02:45)
[2025-10-11] MEDS ORDERED: PHOS-NAK 1 PKT PACK PO PRN (02:45)
[2025-10-11] MEDS: VANCOMYCIN 2 GRAM/400 ML Premix BAG IVPB SCH (03:02)
[2025-10-11 03:10] VITALS: BMI 22.0
[2025-10-11 07:59] LABS: #Basophils Less than 0.03 10x3/uL (0.0-0.2); #Eosinophils Less than 0.03 10x3/uL (0.0-0.7); #Monocytes 0.03 10x3/uL (0.11-0.59); #Neutrophils 0.33 10x3/uL (1.40-6.50); %Basophils 0.0 % (0.0-1.0); %Eosinophils 0.0 % (0.0-10.0); %Lymphocytes 44.8 % (21.0-51.0); %Monocytes 4.5 % (0.0-10.0); %Neutrophils 49.2 % (42.0-75.0); Hematocrit 21.1 % (42.0-52.0); Hemoglobin 6.7 g/dL (14.0-18.0); Mean Corpuscular Hemoglobin 28.9 pg (27.0-31.0); Mean Corpuscular Volume 90.9 fL (78.0-98.0); Platelet Count 7 10x3/uL (130-400); Red Blood Cell (RBC) Count 2.32 mill/uL (4.70-6.10); White Blood Cell (WBC) Count 0.67 10x3/uL (4.8-10.8)
[2025-10-11 08:03] LABS: ALT (SGPT) Less than 7 U/L (Less than 45); AST (SGOT) 25 U/L (11-34); Albumin 3.1 g/dL (3.1-4.5); Alkaline Phosphatase 65 U/L (40-110); Anion Gap 10 mmol/L (10-20); BUN (Urea Nitrogen) 18 mg/dL (8.4-25.7); Bilirubin, Total 1.0 mg/dL (0.3-1.2); Calc. Creatinine Clearance 66 mL/min (70-130); Calcium 9.0 mg/dL (7.8-10.44); Carbon Dioxide 27 mmol/L (23-31); Chloride 107 mmol/L (98-107); Globulin 3.7 g/dL (2.4-3.5); Glucose 78 mg/dL (83-110); Potassium 4.2 mmol/L (3.5-5.1); Sodium 140 mmol/L (136-145)
[2025-10-11] MEDS: valACYclovir 500 MG TAB PO SCH (08:08)
[2025-10-11] MEDS: glipiZIDE 5 MG TAB PO SCH (08:08)
[2025-10-11] MEDS: Gabapentin 100 MG CAP PO SCH (08:08)
[2025-10-11] MEDS ORDERED: PNEUMOC 20-VAL CONJ-DIP CRM/PF 0.5 ML SYRINGE IM ONE (09:00)
[2025-10-11 09:04] LABS: Anisocytosis SLIGHT = 6-15 cells HPF (0-5); Macrocytosis SLIGHT = 6-15 cells HPF (0-5); Nucleated RBC (Manual Ct) 5 % (0); Platelet Adequacy Comment Significant Decrease; Polychromasia SLIGHT = 2-3 cells HPF (0-2); Schistocytes SLIGHT = 2-5 cells HPF (0-1)
[2025-10-11] MEDS: Losartan 25 MG TAB PO SCH (11:13)
[2025-10-12 05:44] LABS: Anion Gap 9 mmol/L (10-20); BUN (Urea Nitrogen) 15 mg/dL (8.4-25.7); Calc. Creatinine Clearance 69 mL/min (70-130); Calcium 9.2 mg/dL (7.8-10.44); Carbon Dioxide 26 mmol/L (23-31); Chloride 108 mmol/L (98-107); Glucose 109 mg/dL (83-110); Potassium 4.0 mmol/L (3.5-5.1); Sodium 139 mmol/L (136-145)
[2025-10-12 05:45] LABS: #Basophils Less than 0.03 10x3/uL (0.0-0.2); #Eosinophils Less than 0.03 10x3/uL (0.0-0.7); #Monocytes 0.04 10x3/uL (0.11-0.59); #Neutrophils 0.40 10x3/uL (1.40-6.50); %Basophils 0.0 % (0.0-1.0); %Eosinophils 0.0 % (0.0-10.0); %Lymphocytes 43.8 % (21.0-51.0); %Monocytes 5.0 % (0.0-10.0); %Neutrophils 49.9 % (42.0-75.0); Hematocrit 22.5 % (42.0-52.0); Hemoglobin 7.2 g/dL (14.0-18.0); Mean Corpuscular Hemoglobin 29.0 pg (27.0-31.0); Mean Corpuscular Volume 90.7 fL (78.0-98.0); Platelet Count 8 10x3/uL (130-400); Red Blood Cell (RBC) Count 2.48 mill/uL (4.70-6.10); White Blood Cell (WBC) Count 0.80 10x3/uL (4.8-10.8)
[2025-10-12] MEDS: Losartan 25 MG TAB PO SCH (08:41)
[2025-10-12] MEDS ORDERED: Sodium Bicarbonate 2.5 MEQ/5 ML SDV ONE (09:33)
[2025-10-12] MEDS ORDERED: Lidocaine 1% w/Epinephrine 1:100K 20 ML VIAL ONE (09:33)
[2025-10-12] MEDS ORDERED: Potassium Chloride 20 MEQ in Premix 1 BAG IVPB PRN (16:00)
[2025-10-12] MEDS ORDERED: PHOS-NAK 1 PKT PACK PO PRN (16:00)
[2025-10-12] MEDS ORDERED: Magnesium Sulfate In Water 4 GM in Premix 1 BAG IVPB PRN (16:00)
[2025-10-12] MEDS ORDERED: Vancomycin 1 GM in Premix 1 BAG IVPB SCH (21:00)
[2025-10-12] MEDS: Vancomycin 1 GM in Premix 1 BAG IVPB SCH (21:01)
[2025-10-12] MEDS: Acetaminophen 325 MG TAB PO PRN (21:02)
[2025-10-13 05:43] LABS: Hematocrit 23.0 % (42.0-52.0); Hemoglobin 7.1 g/dL (14.0-18.0); Mean Corpuscular Hemoglobin 28.6 pg (27.0-31.0); Mean Corpuscular Volume 92.7 fL (78.0-98.0); Platelet Count 6 10x3/uL (130-400); Red Blood Cell (RBC) Count 2.48 mill/uL (4.70-6.10); White Blood Cell (WBC) Count 0.85 10x3/uL (4.8-10.8)
[2025-10-13 05:55] LABS: Vancomycin, Random 11.0 ug/mL (See Comment)
[2025-10-13 05:57] LABS: Anion Gap 12 mmol/L (10-20); BUN (Urea Nitrogen) 15 mg/dL (8.4-25.7); Calc. Creatinine Clearance 72 mL/min (70-130); Calcium 9.3 mg/dL (7.8-10.44); Carbon Dioxide 26 mmol/L (23-31); Chloride 106 mmol/L (98-107); Glucose 124 mg/dL (83-110); Potassium 4.0 mmol/L (3.5-5.1); Sodium 140 mmol/L (136-145)
[2025-10-13] MEDS: Benzonatate 100 MG CAP PO PRN (06:10)
[2025-10-13] MEDS: Benzocaine/Menthol 1 LOZ LOZ PO PRN (06:11)
[2025-10-13 06:19] LABS: Anisocytosis SLIGHT = 6-15 cells HPF (0-5); Nucleated RBC (Manual Ct) 13 % (0); Platelet Adequacy Comment Platelets Decreased; Polychromasia SLIGHT = 2-3 cells HPF (0-2)
[2025-10-14 07:08] LABS: #Basophils Less than 0.03 10x3/uL (0.0-0.2); #Eosinophils Less than 0.03 10x3/uL (0.0-0.7); #Monocytes 0.06 10x3/uL (0.11-0.59); #Neutrophils 0.37 10x3/uL (1.40-6.50); %Basophils 0.0 % (0.0-1.0); %Eosinophils 0.0 % (0.0-10.0); %Lymphocytes 39.7 % (21.0-51.0); %Monocytes 8.2 % (0.0-10.0); %Neutrophils 50.7 % (42.0-75.0); Hematocrit 21.7 % (42.0-52.0); Hemoglobin 6.8 g/dL (14.0-18.0); Mean Corpuscular Hemoglobin 29.3 pg (27.0-31.0); Mean Corpuscular Volume 93.5 fL (78.0-98.0); Platelet Count 11 10x3/uL (130-400); Red Blood Cell (RBC) Count 2.32 mill/uL (4.70-6.10); White Blood Cell (WBC) Count 0.73 10x3/uL (4.8-10.8)
[2025-10-14 07:24] LABS: Anion Gap 13 mmol/L (10-20); BUN (Urea Nitrogen) 15 mg/dL (8.4-25.7); Calc. Creatinine Clearance 64 mL/min (70-130); Calcium 9.1 mg/dL (7.8-10.44); Carbon Dioxide 26 mmol/L (23-31); Chloride 104 mmol/L (98-107); Glucose 192 mg/dL (83-110); Potassium 4.3 mmol/L (3.5-5.1); Sodium 139 mmol/L (136-145)
[2025-10-15 08:12] VITALS: TEMP 98.1
[2025-10-15 10:16] LABS: Hematocrit 26.5 % (42.0-52.0); Hemoglobin 8.2 g/dL (14.0-18.0); Mean Corpuscular Hemoglobin 28.7 pg (27.0-31.0); Mean Corpuscular Volume 92.7 fL (78.0-98.0); Platelet Count 14 10x3/uL (130-400); Red Blood Cell (RBC) Count 2.86 mill/uL (4.70-6.10); White Blood Cell (WBC) Count 0.71 10x3/uL (4.8-10.8)
[2025-10-15 10:28] LABS: Anion Gap 9 mmol/L (10-20); BUN (Urea Nitrogen) 16 mg/dL (8.4-25.7); Calc. Creatinine Clearance 60 mL/min (70-130); Calcium 9.4 mg/dL (7.8-10.44); Carbon Dioxide 30 mmol/L (23-31); Chloride 103 mmol/L (98-107); Glucose 217 mg/dL (83-110); Potassium 4.0 mmol/L (3.5-5.1); Sodium 138 mmol/L (136-145)
[2025-10-15 12:21] LABS: Anisocytosis SLIGHT = 6-15 cells HPF (0-5); Burr Cells SLIGHT = 2-5 cells HPF (0-1); Giant Platelets 1.0 % (0-5); Macrocytosis SLIGHT = 6-15 cells HPF (0-5); Nucleated RBC (Manual Ct) 13 % (0); Platelet Adequacy Comment Significant Decrease; Polychromasia SLIGHT = 2-3 cells HPF (0-2); Schistocytes SLIGHT = 2-5 cells HPF (0-1); Smudge Cells 6.9 %
[2025-10-15 12:37] VITALS: BP 115/75
== END 2025-10-15 14:38 | DRG 812 ==
LOC: EEVIPCON 22:56 → ERS 22:56 → T4-A 10-11 01:16 → OBSVTOIN 10-12 09:22
PROVIDERS: ADMIT Student in an Organized Health Care Education/Training Program; ATTEND Hospitalist
PROC: 30233K1 Transfusion of Nonautologous Frozen Plasma into Peripheral Vein, Percutaneous Approach (ICD-10-PCS; principal; 2025-10-11)
PROC: 30233L1 Transfusion of Nonautologous Fresh Plasma into Peripheral Vein, Percutaneous Approach (ICD-10-PCS; 2025-10-11)
PROC: 6A550Z2 Pheresis of Platelets, Single (ICD-10-PCS; 2025-10-13)
PROC: 30233N1 Transfusion of Nonautologous Red Blood Cells into Peripheral Vein, Percutaneous Approach (ICD-10-PCS; 2025-10-14)
PROC: 3E03329 Introduction of Other Anti-infective into Peripheral Vein, Percutaneous Approach (ICD-10-PCS; 2025-10-14)
DX: D46.Z Other myelodysplastic syndromes (principal); D61.818 Other pancytopenia; E11.9 Type 2 diabetes mellitus without complications; Z85.46 Personal history of malignant neoplasm of prostate; Z79.84 Long term (current) use of oral hypoglycemic drugs
CPT/HCPCS: 36415; 36416; 36430; 38222; 71045; 77002; 77012; 80048; 80053; 80202; 81001; 83605; 83880; 84443; 84484; 85025; 85060; 85610; 85660; 85730; 86850; 86860; 86870; 86880; 86900; 86901; 86905; 86922; 86972; 87040; 87077; 88184; 88237; 96365; 96375; C1830; G0378; J0692; J1815; J3373; J3375; P9016; P9035; P9059

== ENCOUNTER 2025-10-24 01:58 | Emergency (ER) | payer OTHER ==
[2025-10-24 02:41] LABS: Hematocrit 25.3 % (42.0-52.0); Hemoglobin 8.0 g/dL (14.0-18.0); Mean Corpuscular Hemoglobin 28.8 pg (27.0-31.0); Mean Corpuscular Volume 91.0 fL (78.0-98.0); Platelet Count 45 10x3/uL (130-400); Red Blood Cell (RBC) Count 2.78 mill/uL (4.70-6.10); White Blood Cell (WBC) Count 0.76 10x3/uL (4.8-10.8)
[2025-10-24 03:04] LABS: Anisocytosis MODERATE=16-30 cells HPF (0-5); Microcytosis SLIGHT = 6-15 cells HPF (0-5); Nucleated RBC (Manual Ct) 10 % (0); Platelet Adequacy Comment Platelets Decreased; Polychromasia MODERATE = 3-4 cells HPF (0-2); Smudge Cells 9.6 %
== END 2025-10-24 04:00 ==
LOC: ERS 01:58 → EEVIPCON 01:58 → ERS 04:00
DX: D61.818 Other pancytopenia (principal); D46.9 Myelodysplastic syndrome, unspecified; I10 Essential (primary) hypertension; Z87.891 Personal history of nicotine dependence; Z79.899 Other long term (current) drug therapy
CPT/HCPCS: 85025; 99283